=== PATIENT | female | born 1990 | race Caucasian/White ===

== ENCOUNTER 2017-03-06 08:42 | Emergency (ER) | payer MEDICAID, SELFPAY ==
[~2017-03-06] VITALS: Ht 149.9 cm; Wt 44.5 kg
[2017-03-06 11:22] VITALS: BP 123/74
== END 2017-03-06 11:23 | disposition home or self-care (01) ==
LOC: EMS 08:48
DX: F41.9 Anxiety disorder, unspecified (principal); M62.838 Other muscle spasm
CPT/HCPCS: 93005; 99284